=== PATIENT | female | born 1985 | race Hispanic/Latino ===

== ENCOUNTER 2025-06-08 07:52 | Emergency (ER) | payer OTHER ==
[~2025-06-08] VITALS: Ht 154.9 cm; Wt 73.5 kg
[2025-06-08 08:32] VITALS: TEMP 99.1
[2025-06-08] MEDS: SODIUM CHLORIDE 0.9% 1000ML 1,000 ML IV STA (08:45)
[2025-06-08] MEDS: ONDANSETRON HCL INJ 2MG/ML 2ML 2 MG/ML VIAL IV STA (08:45)
[2025-06-08 08:50] LABS: RED CELL DISTRIBUTION WIDTH 13.6 % (11.7-14.4)
[2025-06-08 08:51] LABS: BASOPHILS % 0.4 % (0.0-1.0); EOSINOPHILS % 1.2 % (0.0-6.0); LYMPHOCYTES % 18.8 % (18.0-39.1); MONOCYTES % 7.9 % (4.4-11.3); NEUTROPHILS % 71.3 % (38.7-80.0)
[2025-06-08 08:52] LABS: INR 0.92
[2025-06-08 09:00] LABS: EST GLOMERULAR FILTRATION RATE 115.0 ML/MIN (>=60)
[2025-06-08 09:04] LABS: LEUKOCYTE ESTERASE ,URINE NEGATIVE (NEGATIVE); PROTEIN,URINE DIPSTICK NEGATIVE (NEGATIVE); URINE UROBILINOGEN 0.2 mg/dL (0.2 - 1)
[2025-06-08 09:06] LABS: EPITHELIAL CELLS,URINE FEW /LPF; WBC,URINE (MAN) 0-5 /HPF (0-5)
[2025-06-08] MEDS: ACETAMINOPHEN 325 MG TAB PO ONE (09:23)
[2025-06-08 09:27] LABS: HCG,QUANTITATIVE 23540.12 mIU/mL (0-10)
[2025-06-08 09:38] LABS: CORONAVIRUS COVID-19 AG POSITIVE (NEGATIVE)
[2025-06-08 10:17] LABS: STREPTOCOCCUS GRP A ANTIGEN NEGATIVE (NEGATIVE)
[2025-06-08 10:53] VITALS: PULSE 75; RESP 16; O2SAT 100
[2025-06-08] MEDS ORDERED: ONDANSETRON ODT4 MG PO (11:38)
== END 2025-06-08 11:55 | disposition home or self-care (01) ==
LOC: ER 08:01
DX: O26.891 Other specified pregnancy related conditions, first trimester (principal); R10.13 Epigastric pain; R11.0 Nausea; Z11.52 Encounter for screening for COVID-19
CPT/HCPCS: 36415; 76801; 80053; 81001; 83518; 83690; 84484; 84702; 85025; 85610; 85730; 87070; 87086; 87428; 99284; J2405; J7030

== ENCOUNTER 2025-06-12 23:05 | Emergency (ER) | payer OTHER ==
[~2025-06-12] VITALS: Ht 154.9 cm; Wt 78.9 kg
[~2025-06-12 23:05] MED LIST: ONDANSETRON ODT4 MG PO
[2025-06-12 23:55] LABS: BASOPHILS % 0.3 % (0.0-1.0); EOSINOPHILS % 2.0 % (0.0-6.0); LYMPHOCYTES % 30.3 % (18.0-39.1); MONOCYTES % 5.2 % (4.4-11.3); NEUTROPHILS % 61.9 % (38.7-80.0); RED CELL DISTRIBUTION WIDTH 13.3 % (11.7-14.4)
[2025-06-13 00:10] LABS: LEUKOCYTE ESTERASE ,URINE NEGATIVE (NEGATIVE); PROTEIN,URINE DIPSTICK NEGATIVE (NEGATIVE); URINE UROBILINOGEN 0.2 mg/dL (0.2 - 1)
[2025-06-13 00:20] LABS: EST GLOMERULAR FILTRATION RATE 110.0 ML/MIN (>=60)
[2025-06-13 00:28] LABS: EPITHELIAL CELLS,URINE MODERATE /LPF; WBC,URINE (MAN) 0-5 /HPF (0-5)
[2025-06-13 01:51] VITALS: PULSE 72; RESP 18; TEMP 98.4
[2025-06-13 02:41] VITALS: BP 108/74; O2SAT 99
== END 2025-06-13 02:37 | disposition home or self-care (01) ==
LOC: MERGE 23:26 → ER 23:26
DX: O20.0 Threatened abortion (principal); R10.30 Lower abdominal pain, unspecified; E11.9 Type 2 diabetes mellitus without complications
CPT/HCPCS: 36415; 76805; 76817; 80048; 81001; 84702; 85025; 93976; 99284